=== PATIENT | male | born 1990 | race Hispanic/Latino ===

== ENCOUNTER 2017-04-08 16:24 | Observation (INO) | payer MEDICAID, OTHER ==
[2017-04-08 16:24] VITALS: BMI 25.0
--- NOTE | 2017-04-08 18:38 | CT ---
PROCEDURE: CT HEAD WITHOUT CONTRAST. HISTORY: Intoxicated head injury COMPARISON: 03/15/2016. TECHNIQUE: Axial computed tomography images were obtained through the head/brain without intravenous contrast. Radiation dose: Total exam DLP = 831.56 mGy-cm. This CT exam was performed using one or more of the following dose reduction techniques: Automated exposure control, adjustment of the mA and/or kV according to patient size, and/or use of iterative reconstruction technique. FINDINGS: HEMORRHAGE: No intracranial hemorrhage. BRAIN: No mass effect or edema. No atrophy or chronic microvascular ischemic changes. VENTRICLES: Unremarkable. No hydrocephalus. CALVARIUM: Unremarkable. PARANASAL SINUSES: Unremarkable as visualized. No significant inflammatory changes. MASTOID AIR CELLS: Unremarkable as visualized. No inflammatory changes. OTHER FINDINGS: None. IMPRESSION: No acute intracranial abnormalities. No significant findings to account for the clinical presentation. No significant interval change compared to the prior examination(s).
--- NOTE | 2017-04-08 18:44 | CT ---
CT cervical spine without IV contrast Indication: Intoxicated. Head injury. Comparison: None available. Technique: Axial computed tomography images were obtained of the cervical spine without the use of intravenous contrast. Coronal and sagittal reformatted images were created and reviewed. This CT exam was performed using 1 or more of the falling dose reduction techniques: Automated exposure control, adjustment of the MAA and/or kV according to patient size, and/or use of iterative reconstruction technique. Radiation dose: Total exam DLP = 537.79 mGy-cm. Findings: Straightening of the normal cervical lordosis may be related to muscle spasm or positioning. There is no evidence of acute fracture or subluxation. Posterior osteophyte arising from the right posterior superior aspect of the C7 vertebral body. No acute fracture identified. The prevertebral soft tissues and spinolaminar lines appear intact. The lateral masses are preserved. The dens tip is intact. There is proper alignment of the lateral masses of C1 with the C2 vertebral body. Fhdi-teqzniv-vtws-right mucosal polyps or retention cysts within the maxillary sinuses. Mild mucosal thickening of the ethmoid air cells. Included portions of the thyroid gland appear unremarkable. Included portions of lung apices appear clear. Impression: No evidence of acute fracture or subluxation. Straightening of the normal cervical lordosis may be related to muscle spasm or positioning. Posterior osteophyte arising from the right posterior superior aspect of the C7 vertebral body, degenerative change. Bvue-rcstbyh-cfoa-right mucosal polyps or retention cysts within the maxillary sinuses. Mild mucosal thickening of the ethmoid air cells.
--- NOTE | 2017-04-08 19:26 | C.PDOC ---
History Of Present Illness Pt was BIBEMS due to public alcohol intoxication. Pt also has signs of head trauma. Pt does not recall when it occurred. Time Seen by Provider: 04/08/17 17:31 Chief Complaint (Nursing): Substance Abuse History Per: Patient, EMS History/Exam Limitations: intoxication Onset/Duration Of Symptoms: Unknown (today) Current Symptoms Are (Timing): Still Present Suicide/Self Injury Attempted (Context): None Modifying Factor(s): Alcohol Severity: Severe Associated Symptoms: denies: Suicidal Thoughts, Suicidal Plan Additional History Per: Prior Records Past Medical History Reviewed: Historical Data, Nursing Documentation, Vital Signs Vital Signs: Last Vital Signs Temp 98.4 F 04/08/17 16:57 Pulse 113 H 04/08/17 16:57 Resp 18 04/08/17 16:57 BP 126/78 04/08/17 16:57 Pulse Ox 98 04/08/17 19:31 - Medical History PMH: Depression Other PMH: Alcohol abuse - [facility] Procedures INJECT/INFUSE NEC (08/13/14) Family History: States: Unknown Family Hx - Social History Hx Tobacco Use: No Hx Alcohol Use: Yes Hx Substance Use: No (pt denies) - Immunization History Hx Tetanus Toxoid Vaccination: No Hx Influenza Vaccination: No Hx Pneumococcal Vaccination: No Review Of Systems Review Of Systems: ROS cannot be obtained secondary to pt's inabilty to answer questions. Physical Exam - Physical Exam Appears: Non-toxic, No Acute Distress, Other (AOB, intoxicated) Skin: Warm, Dry Head: Abrasion (abrasions on scalp, no active bleeding) Eye(s): bilateral: PERRL, EOMI Neck: Normal ROM, No Midline Cervical Tenderness, No Step Off Deformity, Supple Chest: Symmetrical, No Deformity, No Tenderness, No Ecchymosis, No Subcutaneous Emphysema Cardiovascular: Rhythm Regular Respiratory: Normal Breath Sounds Gastrointestinal/Abdominal: Soft, No Tenderness Back: No CVA Tenderness, No Vertebral Tenderness Extremity: Normal ROM, No Tenderness, No Swelling, Other (old bony deformity of right shoulder) Neurological/Psych: Normal Motor, Normal Sensation, Slow To Respond With Command Gait: Unable To Assess ED Course And Treatment O2 Sat by Pulse Oximetry: 98 Pulse Ox Interpretation: Normal - CT Scan/US CT head Other Rad Studies (CT/US): Read By Radiologist, Radiology Report Reviewed CT/US Interpretation: IMPRESSION: No acute intracranial abnormalities. No significant findings to account for the clinical presentation. No significant interval change compared to the prior examination(s). CT C-spine Other Rad Studies (CT/US): Read By Radiologist, Radiology Report Reviewed CT/US Interpretation: Impression: No evidence of acute fracture or subluxation. Straightening of the normal cervical lordosis may be related to muscle spasm or positioning. Posterior osteophyte arising from the right posterior superior aspect of the C7 vertebral body, degenerative change. Left- nzbinmm-nfgw-rjlns mucosal polyps or retention cysts within the maxillary sinuses. Mild mucosal thickening of the ethmoid air cells. ED OBSERVATION Date of observation admission: 04/08/17 Time of observation admission: 18:00 - Observation admission statement Patient is being placed in observation because:: Alcohol intoxication. - Goals of Observation Goals of observation are:: Sobriety. Disposition - Disposition Disposition Time: 01:00 Condition: STABLE - Clinical Impression Clinical Impression: Alcohol abuse with intoxication, Head injury Physician Patient Turnover Patient Signed Over To: Reena Santillan Handoff Comments: to reassess and dispo pt once sober.
[2017-04-09 04:05] VITALS: RESP 16
[2017-04-09 06:04] VITALS: BP 111/64; PULSE 82; TEMP 98.2; O2SAT 97
== END 2017-04-09 06:52 | disposition home or self-care (01) ==
LOC: C.ER 16:24 → C.9OBSV 19:28
PROVIDERS: ADMIT Emergency Medicine; ATTEND Emergency Medicine
DX: F10.129 Alcohol abuse with intoxication, unspecified (principal); S09.90XA Unspecified injury of head, initial encounter; Y90.9 Presence of alcohol in blood, level not specified; X58.XXXA Exposure to other specified factors, initial encounter
CPT/HCPCS: 70450; 72125; 82948; G0378

== ENCOUNTER 2017-04-10 21:31 | Observation (INO) | payer OTHER ==
[2017-04-10 21:31] VITALS: BMI 25.0
[2017-04-10 21:43] VITALS: RESP 20
--- NOTE | 2017-04-10 22:00 | C.PDOC ---
History Of Present Illness Patient was brought in by EMS [place] the park. Patient admits to ETOH use and denies any physical complaints at this time. Time Seen by Provider: 04/10/17 21:58 Chief Complaint (Nursing): Substance Abuse History Per: Patient History/Exam Limitations: no limitations Onset/Duration Of Symptoms: Hrs Current Symptoms Are (Timing): Still Present Suicide/Self Injury Attempted (Context): None Modifying Factor(s): Alcohol Severity: None Pain Scale Rating Of: 0 Associated Symptoms: denies: Depression, Suicidal Thoughts, Suicidal Plan Involuntary Hold By: None Recent travel outside of the [place]: No Past Medical History Reviewed: Historical Data, Nursing Documentation, Vital Signs Vital Signs: Last Vital Signs Temp 97.9 F 04/10/17 21:41 Pulse 86 04/10/17 21:41 Resp 20 04/10/17 21:41 BP 118/68 04/10/17 21:41 Pulse Ox 97 04/11/17 01:46 - Medical History PMH: Depression Surgical History: No Surg Hx - [facility] Procedures INJECT/INFUSE NEC (08/13/14) Family History: States: No Known Family Hx - Social History Hx Tobacco Use: No Hx Alcohol Use: Yes Hx Substance Use: No (pt denies) - Immunization History Hx Tetanus Toxoid Vaccination: No Hx Influenza Vaccination: No Hx Pneumococcal Vaccination: No Review Of Systems Constitutional: Negative for: Fever, Chills Gastrointestinal: Negative for: Nausea, Vomiting, Diarrhea Physical Exam - Physical Exam Appears: Non-toxic, Other (ETOH on breath) Skin: Warm, Dry Oral Mucosa: Moist Chest: Symmetrical, No Tenderness Cardiovascular: Rhythm Regular, No Murmur Respiratory: No Rales, No Rhonchi, No Wheezing Gastrointestinal/Abdominal: Soft, No Tenderness Neurological/Psych: Oriented x3 ED Course And Treatment O2 Sat by Pulse Oximetry: 97 (Room air) Pulse Ox Interpretation: Normal Reevaluation Time: 05:37 Reassessment Condition: Improved ED OBSERVATION Discharge: Yes Date of observation admission: 04/10/17 Time of observation admission: 22:00 - Observation admission statement Patient is being placed in observation because:: Acute ETOH intoxication - Goals of Observation Goals of observation are:: Sobriety - Progress Note Progress Note: 04/11/17 01:46 vitals stable Disposition Counseled Patient/Family Regarding: Studies Performed, Diagnosis, Need For Followup - Disposition Disposition: HOME/ ROUTINE Disposition Time: 21:58 Condition: FAIR - Clinical Impression Clinical Impression: Alcohol intoxication, Alcohol abuse - Scribe Statement The provider has reviewed the documentation as recorded by the Scribeugenio Reyes All medical record entries made by the Pbibeugenio were at my direction and personally dictated by me. I have reviewed the chart and agree that the record accurately reflects my personal performance of the history, physical exam, medical decision making, and the department course for this patient. I have also personally directed, reviewed, and agree with the discharge instructions and disposition.
[2017-04-11 05:51] VITALS: BP 121/64; PULSE 77; TEMP 98.1; O2SAT 98
== END 2017-04-11 05:37 | disposition home or self-care (01) ==
LOC: C.ER 21:31 → C.9OBSV 22:00
PROVIDERS: ADMIT Emergency Medicine; ATTEND Emergency Medicine
DX: F10.129 Alcohol abuse with intoxication, unspecified (principal); Y90.9 Presence of alcohol in blood, level not specified
CPT/HCPCS: 82948; 99284; G0378

== ENCOUNTER 2017-05-19 20:05 | Emergency (ER) | payer OTHER ==
[2017-05-19 20:05] VITALS: BMI 23.7
--- NOTE | 2017-05-19 20:52 | C.PDOC ---
History Of Present Illness 27 year old male who presents to the ER with acute ETOH intoxication. Patient has no sign of injury; denies any physical complaints at this time. Chief Complaint (Nursing): Substance Abuse History Per: Patient History/Exam Limitations: no limitations Onset/Duration Of Symptoms: Hrs Current Symptoms Are (Timing): Still Present Suicide/Self Injury Attempted (Context): None Modifying Factor(s): Alcohol Associated Symptoms: denies: Depression, Suicidal Thoughts, Suicidal Plan Involuntary Hold By: None Recent travel outside of the [place]: No Past Medical History Reviewed: Historical Data, Nursing Documentation, Vital Signs Vital Signs: Last Vital Signs Temp 97.6 F 05/20/17 02:36 Pulse 82 05/20/17 02:36 Resp 18 05/20/17 02:36 BP 93/45 L 05/20/17 02:36 Pulse Ox 98 05/20/17 02:41 - Medical History PMH: Anxiety, Back Problems, Depression, Fractures, Gastritis Surgical History: No Surg Hx - [facility] Procedures INJECT/INFUSE NEC (08/13/14) Family History: States: Unknown Family Hx - Social History Hx Tobacco Use: No Hx Alcohol Use: Yes Hx Substance Use: No (pt denies) - Immunization History Hx Tetanus Toxoid Vaccination: No Hx Influenza Vaccination: No Hx Pneumococcal Vaccination: No Review Of Systems Constitutional: Negative for: Fever, Chills Gastrointestinal: Negative for: Nausea, Vomiting, Diarrhea Physical Exam - Physical Exam Appears: Non-toxic, No Acute Distress, Other (ETOH on breath, Slurred speech) Skin: Normal Color, Warm, Dry Head: Atraumatic, Normacephalic Oral Mucosa: Moist Chest: Symmetrical, No Tenderness Cardiovascular: Rhythm Regular, No Murmur Respiratory: Normal Breath Sounds, No Rales, No Rhonchi, No Wheezing Gastrointestinal/Abdominal: Soft, No Tenderness Neurological/Psych: Oriented x3, Normal Speech, Normal Cognition ED Course And Treatment - Laboratory Results Result Diagrams: 05/19/17 21:07 05/19/17 21:07 O2 Sat by Pulse Oximetry: 98 (Room air) Pulse Ox Interpretation: Normal Progress Note: Blood work and urinalysis ordered. ED OBSERVATION Date of observation admission: 05/19/17 Time of observation admission: 20:30 - Observation admission statement Patient is being placed in observation because:: Acute ETOH intoxication - Goals of Observation Goals of observation are:: Sobriety Disposition Counseled Patient/Family Regarding: Diagnosis - Disposition Referrals: [facility] [Outside] Disposition: HOME/ ROUTINE Disposition Time: 05:46 Condition: STABLE Instructions: Abuse of Alcohol (ED) - POA Present On Arrival: None - Clinical Impression Clinical Impression: Alcohol intoxication - Scribe Statement The provider has reviewed the documentation as recorded by the Scribe Jonathan Reyes All medical record entries made by the Scribe were at my direction and personally dictated by me. I have reviewed the chart and agree that the record accurately reflects my personal performance of the history, physical exam, medical decision making, and the department course for this patient. I have also personally directed, reviewed, and agree with the discharge instructions and disposition.
[2017-05-19] MEDS ORDERED: Sodium Chloride 0.9% 1,000 ML ONE (21:10)
[2017-05-19 21:19] LABS: BASO % 0.4 % (0.0-2.0); EOS # 0.1 K/uL (0.0-0.7); EOS % 1.9 % (0.0-4.0); HEMOGLOBIN 14.1 g/dL (12.0-18.0); LYMPH % 25.3 % (20.0-40.0); MEAN CELL VOLUME 89.4 fL (80.0-94.0); MEAN CORPUSCULAR HEMOGLOBIN 30.2 pg (27.0-31.0); MEAN CORPUSCULAR HGB CONC 33.8 g/dL (33.0-37.0); MEAN PLATELET VOLUME 6.6 fL (7.2-11.7); MONO # 0.5 K/uL (0.0-0.8); NEUT # 5.1 K/uL (1.8-7.0); NEUT % 66.4 % (50.0-75.0); NRBC % 0.1 % (0.0-2.0); RBC 4.66 Mil/uL (4.40-5.90); RED CELL DISTRIBUTION WIDTH 14.6 % (11.5-14.5); WHITE BLOOD COUNT 7.7 K/uL (4.8-10.8)
[2017-05-19 21:27] LABS: ALBUMIN 4.1 g/dL (3.5-5.0)
[2017-05-19 21:30] LABS: ALB/GLOB RATIO 1.2 (1.0-2.1); AST/SGOT 120 U/L (17-59); BLOOD UREA NITROGEN 11 mg/dL (9-20); GFR AFRICAN-AMERICAN > 60; GFR NON-AFRICAN AMERICAN > 60
[2017-05-19 21:31] LABS: ALT/SGPT 116 U/L (21-72); CALCIUM 9.1 mg/dl (8.6-10.4)
[2017-05-19] MEDS ORDERED: Sodium Chloride 0.9% 1,000 ML IV ONE (21:44)
[2017-05-19 22:16] LABS: URINE BILIRUBIN NEGATIVE (NEGATIVE); URINE BLOOD 1+ (NEGATIVE); URINE CLARITY Clear (Clear); URINE COLOR Straw (YELLOW); URINE GLUCOSE (UA) NORMAL (Normal); URINE LEUKOCYTE ESTERASE NEG Leu/uL (Negative); URINE NITRATE NEGATIVE (NEGATIVE); URINE PROTEIN NEGATIVE (NEGATIVE); URINE UROBILINOGEN NORMAL mg/dL (0.2-1.0)
[2017-05-19 22:29] LABS: BARBITURATES, UR NEGATIVE (NEGATIVE)
[2017-05-19 22:30] LABS: BENZODIAZEPINES, UR NEGATIVE (NEGATIVE)
[2017-05-19 22:32] LABS: OPIATES, UR NEGATIVE (NEGATIVE)
[2017-05-19 22:33] LABS: PHENCYCLIDINE, UR NEGATIVE (NEGATIVE)
[2017-05-20 02:41] VITALS: O2SAT 98
[2017-05-20 05:59] VITALS: BP 94/60; PULSE 78; RESP 20; TEMP 98
== END 2017-05-20 05:59 | disposition home or self-care (01) ==
LOC: C.ER 20:05
DX: F10.120 Alcohol abuse with intoxication, uncomplicated (principal); Y90.8 Blood alcohol level of 240 mg/100 ml or more
CPT/HCPCS: 80053; 80320; 80324; 80345; 80346; 80349; 80353; 80358; 80361; 81001; 83992; 85025; 96360; 99285; J7040

== ENCOUNTER 2017-05-28 17:04 | Observation (INO) | payer OTHER ==
[2017-05-28 17:09] VITALS: BMI 23.7
[2017-05-28] MEDS ORDERED: Sodium Chloride 0.9% 1,000 ML IV ONE (17:43)
--- NOTE | 2017-05-28 18:07 | C.PDOC ---
History Of Present Illness 27 year old male brought in by EMS for public intoxication, patient has had multiple visits at [facility] in the past for the same. Patient is poorly responsive and responds only to noxious stimuli. Patient is not answering questions or following commands. Time Seen by Provider: 05/28/17 17:29 Chief Complaint (Nursing): Substance Abuse History Per: EMS History/Exam Limitations: intoxication Onset/Duration Of Symptoms: Hrs Current Symptoms Are (Timing): Still Present Suicide/Self Injury Attempted (Context): None Modifying Factor(s): Alcohol Involuntary Hold By: None Recent travel outside of the [place]: No Past Medical History Reviewed: Historical Data, Nursing Documentation, Vital Signs Vital Signs: Last Vital Signs Temp 98.7 F 05/28/17 17:21 Pulse 104 H 05/28/17 17:21 Resp 18 05/28/17 17:21 BP 124/66 05/28/17 17:21 Pulse Ox 96 05/28/17 18:17 - Medical History PMH: Anxiety, Back Problems, Depression, Fractures, Gastritis Surgical History: No Surg Hx - [facility] Procedures INJECT/INFUSE NEC (08/13/14) Family History: States: Unknown Family Hx - Social History Hx Tobacco Use: No Hx Alcohol Use: Yes Hx Substance Use: No (pt denies) - Immunization History Hx Tetanus Toxoid Vaccination: No Hx Influenza Vaccination: No Hx Pneumococcal Vaccination: No Review Of Systems Review Of Systems: ROS cannot be obtained secondary to pt's inabilty to answer questions. Physical Exam - Physical Exam Appears: Non-toxic Skin: Normal Color, Warm, Dry Head: Atraumatic, Normacephalic Oral Mucosa: Moist Neck: Normal, Supple Chest: Symmetrical, No Tenderness Cardiovascular: Rhythm Regular, No Murmur Respiratory: Normal Breath Sounds, No Rales, No Rhonchi, No Wheezing Gastrointestinal/Abdominal: Soft, No Tenderness Extremity: No Tenderness, No Pedal Edema, No Deformity, No Swelling ED Course And Treatment O2 Sat by Pulse Oximetry: 96 (Room air) Pulse Ox Interpretation: Normal Progress Note: EKG, blood work, and urinalysis ordered. IV fluids administered. ED OBSERVATION Date of observation admission: 05/28/17 Time of observation admission: 18:06 - Observation admission statement Patient is being placed in observation because:: Acute ETOH intoxication - Goals of Observation Goals of observation are:: Sobriety Disposition - Disposition Disposition: HOSPITALIZED Disposition Time: 18:06 Condition: GUARDED Forms: [facility] (Vietnamese) - POA Present On Arrival: None - Clinical Impression Clinical Impression: Alcohol intoxication - Scribe Statement The provider has reviewed the documentation as recorded by the Scribe Jonathan Reyes All medical record entries made by the Scribe were at my direction and personally dictated by me. I have reviewed the chart and agree that the record accurately reflects my personal performance of the history, physical exam, medical decision making, and the department course for this patient. I have also personally directed, reviewed, and agree with the discharge instructions and disposition. Physician Patient Turnover Patient Signed Over To: Brian Thurston Handoff Comments: patient intoxicated, pending labs and re-eval
[2017-05-28 18:15] LABS: URINE BILIRUBIN NEGATIVE (NEGATIVE); URINE BLOOD 1+ (NEGATIVE); URINE COLOR Colorless (YELLOW); URINE GLUCOSE (UA) NORMAL (Normal); URINE KETONE NEGATIVE (NEGATIVE); URINE LEUKOCYTE ESTERASE NEG Leu/uL (Negative); URINE PROTEIN NEGATIVE (NEGATIVE); URINE UROBILINOGEN NORMAL mg/dL (0.2-1.0)
--- NOTE | 2017-05-28 18:20 | C.PDOC ---
Time Seen by Provider: 05/28/17 17:29 Chief Complaint (Nursing): Substance Abuse Past Medical History Vital Signs: Last Vital Signs Temp 98.7 F 05/28/17 17:21 Pulse 104 H 05/28/17 17:21 Resp 18 05/28/17 17:21 BP 124/66 05/28/17 17:21 Pulse Ox 96 05/28/17 17:21 - Medical History PMH: Anxiety, Back Problems, Depression, Fractures, Gastritis Denies: Arthritis, HIV, HTN, Chronic Kidney Disease, Seizures, Sexually Transmitted Disease - [facility] Procedures INJECT/INFUSE NEC (08/13/14) Family History: States: Unknown Family Hx - Social History Hx Tobacco Use: No Hx Alcohol Use: Yes Hx Substance Use: No (pt denies) - Immunization History Hx Tetanus Toxoid Vaccination: No Hx Influenza Vaccination: No Hx Pneumococcal Vaccination: No ED Course And Treatment O2 Sat by Pulse Oximetry: 96 Disposition - Disposition Forms: [employer] (Pashto)
[2017-05-28 18:29] LABS: RBC URINE 4 /hpf (0-3)
[2017-05-28 18:30] LABS: BASO % 0.8 % (0.0-2.0); EOS # 0.2 K/uL (0.0-0.7); EOS % 2.6 % (0.0-4.0); HEMATOCRIT 39.2 % (35.0-51.0); LYMPH # 2.5 K/uL (1.0-4.3); LYMPH % 40.7 % (20.0-40.0); MEAN CELL VOLUME 90.6 fL (80.0-94.0); MEAN CORPUSCULAR HEMOGLOBIN 31.4 pg (27.0-31.0); MEAN CORPUSCULAR HGB CONC 34.6 g/dL (33.0-37.0); MEAN PLATELET VOLUME 6.5 fL (7.2-11.7); MONO # 0.5 K/uL (0.0-0.8); MONO % 7.7 % (0.0-10.0); RED CELL DISTRIBUTION WIDTH 14.6 % (11.5-14.5); WHITE BLOOD COUNT 6.1 K/uL (4.8-10.8)
[2017-05-28 18:43] LABS: CHLORIDE 103 mmol/L (98-107)
[2017-05-28 18:44] LABS: POTASSIUM 3.7 mmol/L (3.6-5.2); SODIUM 145 mmol/L (132-148)
[2017-05-28 18:46] LABS: ALB/GLOB RATIO 1.3 (1.0-2.1); ALKALINE PHOSPHATASE 125 U/L (38-126); AST/SGOT 101 U/L (17-59); BILIRUBIN,TOTAL 0.5 mg/dL (0.2-1.3); CARBON DIOXIDE 25 mmol/L (22-30); GFR AFRICAN-AMERICAN > 60
[2017-05-28 18:47] LABS: ALT/SGPT 147 U/L (21-72); BLOOD UREA NITROGEN 10 mg/dL (9-20); GLUCOSE,RANDOM 100 mg/dL (75-110)
[2017-05-28 18:58] LABS: ALCOHOL SERUM 331 mg/dl (0-10)
[2017-05-29 03:55] VITALS: RESP 16
[2017-05-29 05:49] VITALS: BP 100/65; PULSE 76; TEMP 98.2; O2SAT 97
--- NOTE | 2017-05-30 07:54 | CARD ---
APPROVED REPORT EKG Measurement Heart [id number] <Conclusion> Normal sinus rhythm Normal ECG
== END 2017-05-29 05:35 | disposition home or self-care (01) ==
LOC: C.ER 17:04 → C.9OBSV 18:25
PROVIDERS: ADMIT Emergency Medicine; ATTEND Emergency Medicine
DX: F10.120 Alcohol abuse with intoxication, uncomplicated (principal); Y90.8 Blood alcohol level of 240 mg/100 ml or more
CPT/HCPCS: 80053; 80320; 80324; 80329; 80345; 80346; 80349; 80353; 80358; 80361; 81001; 82948; 83992; 85025; 96360; G0378; J7040

== ENCOUNTER 2017-06-01 23:55 | Emergency (ER) | payer OTHER ==
[2017-06-01 23:56] VITALS: BMI 23.7
--- NOTE | 2017-06-01 23:59 | C.PDOC ---
History Of Present Illness Patient was brought to the ER via EMS after he was found on the sidewalk intoxicated. Patient became agitative, combative, and began urinating all over the ambulance and room. Patient was retrained for his own safety and safety of ER workers. Patient has not verbalized any physical complaints at this time. Time Seen by Provider: 06/01/17 23:58 History Per: Patient History/Exam Limitations: no limitations Onset/Duration Of Symptoms: Hrs Current Symptoms Are (Timing): Still Present Suicide/Self Injury Attempted (Context): None Modifying Factor(s): Alcohol Severity: None Pain Scale Rating Of: 0 Associated Symptoms: denies: Depression, Suicidal Thoughts, Suicidal Plan Involuntary Hold By: None Recent travel outside of the [place]: No Past Medical History Reviewed: Historical Data, Nursing Documentation, Vital Signs Vital Signs: Last Vital Signs Temp 98.8 F 06/02/17 04:27 Pulse 83 06/02/17 04:27 Resp 20 06/02/17 04:27 BP 107/61 06/02/17 04:27 Pulse Ox 98 06/02/17 04:27 - Medical History PMH: Anxiety, Back Problems, Depression, Fractures, Gastritis Surgical History: No Surg Hx - [facility] Procedures INJECT/INFUSE NEC (08/13/14) Family History: States: No Known Family Hx - Social History Hx Tobacco Use: No Hx Alcohol Use: Yes Hx Substance Use: No (pt denies) - Immunization History Hx Tetanus Toxoid Vaccination: No Hx Influenza Vaccination: No Hx Pneumococcal Vaccination: No Review Of Systems Constitutional: Negative for: Fever, Chills Gastrointestinal: Negative for: Nausea, Vomiting, Diarrhea Physical Exam - Physical Exam Appears: Non-toxic, Combative, Agitated, Other (ETOH on breath) Skin: Warm, Dry Oral Mucosa: Moist Chest: Symmetrical, No Tenderness Cardiovascular: Rhythm Regular, No Murmur Respiratory: No Rales, No Rhonchi, No Wheezing Gastrointestinal/Abdominal: Soft, No Tenderness Neurological/Psych: Oriented x3 ED Course And Treatment - Laboratory Results Result Diagrams: 06/02/17 00:41 06/02/17 00:41 O2 Sat by Pulse Oximetry: 98 Pulse Ox Interpretation: Normal Progress Note: Blood work and urinalysis ordered. Patient place on 4 point restraints. ED OBSERVATION Date of observation admission: 06/02/17 Time of observation admission: 00:13 - Observation admission statement Patient is being placed in observation because:: acute alcohol intoxication - Goals of Observation Goals of observation are:: sobriety - Progress Note Progress Note: 06/02/17 00:14 vitals stable 06/02/17 04:24 no complaints Disposition Counseled Patient/Family Regarding: Studies Performed, Diagnosis, Need For Followup - Disposition Referrals: [facility] [Outside] Disposition: HOME/ ROUTINE Disposition Time: 23:59 Condition: FAIR Instructions: Alcohol Intoxication (DC) - Clinical Impression Clinical Impression: Alcohol intoxication - Scribe Statement The provider has reviewed the documentation as recorded by the Scribe Jonathan Reyes All medical record entries made by the Scribe were at my direction and personally dictated by me. I have reviewed the chart and agree that the record accurately reflects my personal performance of the history, physical exam, medical decision making, and the department course for this patient. I have also personally directed, reviewed, and agree with the discharge instructions and disposition.
[2017-06-02 00:44] LABS: BASO # 0.1 K/uL (0.0-0.2); EOS # 0.2 K/uL (0.0-0.7); HEMATOCRIT 40.6 % (35.0-51.0); LYMPH # 1.8 K/uL (1.0-4.3); LYMPH % 22.2 % (20.0-40.0); MEAN CELL VOLUME 91.4 fL (80.0-94.0); MEAN CORPUSCULAR HEMOGLOBIN 31.4 pg (27.0-31.0); MEAN CORPUSCULAR HGB CONC 34.3 g/dL (33.0-37.0); MEAN PLATELET VOLUME 6.5 fL (7.2-11.7); MONO # 0.7 K/uL (0.0-0.8); MONO % 8.4 % (0.0-10.0); NRBC % 0.1 % (0.0-2.0); RED CELL DISTRIBUTION WIDTH 14.8 % (11.5-14.5); WHITE BLOOD COUNT 8.1 K/uL (4.8-10.8)
[2017-06-02 01:09] LABS: RBC URINE < 1 /hpf (0-3); URINE BILIRUBIN NEGATIVE (NEGATIVE); URINE COLOR Straw (YELLOW); URINE GLUCOSE (UA) NORMAL (Normal); URINE KETONE NEGATIVE (NEGATIVE); URINE LEUKOCYTE ESTERASE NEG Leu/uL (Negative); URINE PROTEIN NEGATIVE (NEGATIVE); URINE UROBILINOGEN NORMAL mg/dL (0.2-1.0)
[2017-06-02 01:13] LABS: CHLORIDE 103 mmol/L (98-107)
[2017-06-02 01:14] LABS: POTASSIUM 3.8 mmol/L (3.6-5.2); SODIUM 143 mmol/L (132-148)
[2017-06-02 01:16] LABS: ALB/GLOB RATIO 1.2 (1.0-2.1); ALKALINE PHOSPHATASE 114 U/L (38-126); ALT/SGPT 124 U/L (21-72); AST/SGOT 104 U/L (17-59); BILIRUBIN,TOTAL 0.5 mg/dL (0.2-1.3); BLOOD UREA NITROGEN 13 mg/dL (9-20); CALCIUM 9.7 mg/dl (8.6-10.4); CARBON DIOXIDE 23 mmol/L (22-30); GFR AFRICAN-AMERICAN > 60; GLUCOSE,RANDOM 90 mg/dL (75-110); TOTAL PROTEIN 7.5 g/dL (6.3-8.3)
[2017-06-02 01:17] LABS: ALCOHOL SERUM 268 mg/dl (0-10)
[2017-06-02 01:27] LABS: URINE BLOOD NEGATIVE (NEGATIVE)
[2017-06-02 04:27] VITALS: TEMP 98.8
[2017-06-02 06:15] VITALS: BP 110/72; PULSE 75; RESP 17; O2SAT 99
== END 2017-06-02 06:17 | disposition home or self-care (01) ==
LOC: C.ER 23:55
DX: F10.129 Alcohol abuse with intoxication, unspecified (principal); Y90.8 Blood alcohol level of 240 mg/100 ml or more

== ENCOUNTER 2017-06-21 17:01 | Observation (INO) | payer OTHER ==
[2017-06-21 17:04] VITALS: BMI 25.8
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
[2017-06-21] MEDS ORDERED: Benzoin Compound Tincture (60 ml) ONE (17:30)
[2017-06-21 23:57] VITALS: O2SAT 98
[2017-06-22 06:14] VITALS: BP 109/72; PULSE 71; RESP 16; TEMP 97.8
== END 2017-06-22 06:12 | disposition home or self-care (01) ==
LOC: C.ER 17:01 → C.9OBSV 17:27 → MERGE 17:27
PROVIDERS: ADMIT Emergency Medicine; ATTEND Emergency Medicine
DX: F10.129 Alcohol abuse with intoxication, unspecified (principal); Y90.8 Blood alcohol level of 240 mg/100 ml or more; R45.1 Restlessness and agitation
CPT/HCPCS: 36415; 80320; 82948; 96372; 99283; G0378; J3486

== ENCOUNTER 2018-05-26 11:39 | Emergency (ER) | payer MEDICAID ==
[2018-05-26 11:40] VITALS: BMI 23.6
[2018-05-26] MEDS ORDERED: Sodium Chloride 0.9% 1,000 ML IV ONE (11:57)
[2018-05-26] MEDS ORDERED: Sodium Chloride 0.9% 1,000 ML ONE (12:14)
[2018-05-26 12:21] LABS: BASO % 0.5 % (0.0-2.0); EOS # 0.1 K/uL (0.0-0.7); EOS % 1.5 % (0.0-4.0); HEMOGLOBIN 14.8 g/dL (12.0-18.0); LYMPH # 1.7 K/uL (1.0-4.3); LYMPH % 27.3 % (20.0-40.0); MEAN CELL VOLUME 91.4 fL (80.0-94.0); MEAN CORPUSCULAR HEMOGLOBIN 31.7 pg (27.0-31.0); MEAN CORPUSCULAR HGB CONC 34.6 g/dL (33.0-37.0); MEAN PLATELET VOLUME 7.1 fL (7.2-11.7); MONO # 0.6 K/uL (0.0-0.8); MONO % 9.8 % (0.0-10.0); NEUT # 3.8 K/uL (1.8-7.0); NEUT % 60.9 % (50.0-75.0); NRBC % 0.1 % (0.0-2.0); RBC 4.67 Mil/uL (4.40-5.90); RED CELL DISTRIBUTION WIDTH 12.9 % (11.5-14.5); WHITE BLOOD COUNT 6.3 K/uL (4.8-10.8)
[2018-05-26 12:37] LABS: ALB/GLOB RATIO 1.6 (1.0-2.1); ALBUMIN 4.6 g/dL (3.5-5.0); ALT/SGPT 33 U/L (21-72); AST/SGOT 40 U/L (17-59); BLOOD UREA NITROGEN 10 mg/dL (9-20); CALCIUM 9.5 mg/dl (8.6-10.4); GFR AFRICAN-AMERICAN > 60; GFR NON-AFRICAN AMERICAN > 60
[2018-05-26 12:55] LABS: URINE BILIRUBIN NEGATIVE (NEGATIVE); URINE BLOOD 1+ (NEGATIVE); URINE CLARITY Clear (Clear); URINE COLOR Straw (YELLOW); URINE GLUCOSE (UA) NORMAL (Normal); URINE LEUKOCYTE ESTERASE NEG Leu/uL (Negative); URINE PROTEIN NEGATIVE (NEGATIVE); URINE UROBILINOGEN NORMAL mg/dL (0.2-1.0)
[2018-05-26 13:04] LABS: BARBITURATES, UR NEGATIVE (NEGATIVE); BENZODIAZEPINES, UR NEGATIVE (NEGATIVE); OPIATES, UR NEGATIVE (NEGATIVE); PHENCYCLIDINE, UR NEGATIVE (NEGATIVE)
--- NOTE | 2018-05-26 13:29 | C.PDOC ---
History Of Present Illness 28-year-old male, is brought to the emergency department by ambulance with complaints of intoxication. EMS was called by friends, stating pt drank too much. All other hx is [id number] due to intoxication Time Seen by Provider: 05/26/18 11:46 Chief Complaint (Nursing): Substance Abuse Past Medical History Reviewed: Historical Data, Nursing Documentation, Vital Signs Vital Signs: Last Vital Signs Temp 98.1 F 05/26/18 16:26 Pulse 79 05/26/18 16:26 Resp 14 05/26/18 16:26 BP 101/65 05/26/18 16:26 Pulse Ox 96 05/26/18 18:42 - Medical History PMH: Anxiety, Back Problems, Depression, Fractures, Gastritis - [facility] Procedures INJECT/INFUSE NEC (08/13/14) Family History: States: Unknown Family Hx - Social History Hx Tobacco Use: No Hx Alcohol Use: Yes Hx Substance Use: No (pt denies) - Immunization History Hx Tetanus Toxoid Vaccination: No Review Of Systems Review Of Systems: ROS cannot be obtained secondary to pt's inabilty to answer questions. Physical Exam - Physical Exam Appears: Non-toxic, No Acute Distress, Other (arousable by sternal rub, EtOH on breath) Skin: Normal Color, Warm, Dry, No Rash Head: Atraumatic, Normacephalic Eye(s): bilateral: Normal Inspection, PERRL (3mm), EOMI Nose: Normal Chest: Symmetrical Cardiovascular: Rhythm Regular, No Murmur Respiratory: Normal Breath Sounds, No Accessory Muscle Use Gastrointestinal/Abdominal: Soft, No Tenderness, No Guarding, No Rebound Extremity: Normal ROM, No Deformity, No Swelling Neurological/Psych: Oriented x3, Normal Speech ED Course And Treatment - Laboratory Results Result Diagrams: 05/26/18 12:12 05/26/18 12:12 O2 Sat by Pulse Oximetry: 96 (RA) Pulse Ox Interpretation: Normal Progress Note: Blood work, UA, UDS ordered and reviewed. Patient given IV NS bolus. 3:15pm- Patient arousable to verbval stimuli, resting comfortably. Pending sobriety. Currently getting IV banana bag. 6:30pm- Patient awake & alert. Disposition - Disposition Disposition Time: 19:00 Condition: STABLE Forms: [facility] (Georgian) - Clinical Impression Clinical Impression: Alcohol intoxication - Scribe Statement The provider has reviewed the documentation as recorded by the Scribe (Melinda Flanagan) All medical record entries made by the Scribe were at my direction and personally dictated by me. I have reviewed the chart and agree that the record accurately reflects my personal performance of the history, physical exam, medical decision making, and the department course for this patient. I have also personally directed, reviewed, and agree with the discharge instructions and disposition. Physician Patient Turnover Patient Signed Over To: Yovanny Torre Handoff Comments: PENDING SOBRIETY
[2018-05-26] MEDS ORDERED: Multivitamin (MVI) 10 ML, Thiamine 100 MG, Folic Acid 1 MG in Sodium Chloride 0.9% 1,00... IV ONE (14:57)
[2018-05-26 19:17] VITALS: BP 107/63; PULSE 74; RESP 18; TEMP 98.2; O2SAT 98
== END 2018-05-26 19:33 | disposition home or self-care (01) ==
LOC: C.ER 11:39
DX: F10.129 Alcohol abuse with intoxication, unspecified (principal); Y90.8 Blood alcohol level of 240 mg/100 ml or more
CPT/HCPCS: 80053; 80320; 80324; 80345; 80346; 80349; 80353; 80358; 80361; 81001; 82948; 83992; 85025; 96361; 96365; 96366; 99285; J3411; J7030

== ENCOUNTER 2018-06-06 00:07 | Emergency (ER) | payer MEDICAID ==
[2018-06-06 00:07] VITALS: BMI 23.6
[2018-06-06 03:45] VITALS: RESP 18; TEMP 98
--- NOTE | 2018-06-06 05:07 | C.PDOC ---
History Of Present Illness 28 year old male presents the ER via EMS for public intoxication. Patient has had many prior evaluations for the same. Denies complaints at this time. Time Seen by Provider: 06/06/18 00:21 Chief Complaint (Nursing): Substance Abuse History Per: Patient History/Exam Limitations: no limitations Onset/Duration Of Symptoms: Hrs Current Symptoms Are (Timing): Still Present Suicide/Self Injury Attempted (Context): None Modifying Factor(s): Alcohol Associated Symptoms: denies: Depression, Suicidal Thoughts Involuntary Hold By: None Recent travel outside of the [place]: No Past Medical History Reviewed: Historical Data, Nursing Documentation, Vital Signs Vital Signs: Last Vital Signs Temp 98.0 F 06/06/18 03:44 Pulse 93 H 06/06/18 03:44 Resp 18 06/06/18 03:44 BP 112/71 06/06/18 03:44 Pulse Ox 94 L 06/06/18 05:07 - Medical History PMH: Anxiety, Back Problems, Depression, Fractures, Gastritis Denies: Chronic Kidney Disease - [facility] Procedures INJECT/INFUSE NEC (08/13/14) Family History: States: Unknown Family Hx - Social History Hx Tobacco Use: No Hx Alcohol Use: Yes Hx Substance Use: No (pt denies) - Immunization History Hx Tetanus Toxoid Vaccination: No Review Of Systems Constitutional: Negative for: Fever, Chills Cardiovascular: Negative for: Chest Pain, Palpitations Respiratory: Negative for: Cough, Shortness of Breath Gastrointestinal: Negative for: Nausea, Vomiting Physical Exam - Physical Exam Appears: Non-toxic, Other (No injuries, ETOH on breath, stuperous) Skin: Normal Color, Warm, Dry Head: Atraumatic, Normacephalic Eye(s): bilateral: Normal Inspection, PERRL, EOMI Oral Mucosa: Moist Neck: Normal, Supple Chest: Symmetrical, No Tenderness Cardiovascular: Rhythm Regular Respiratory: Normal Breath Sounds, No Rales, No Rhonchi, No Wheezing Gastrointestinal/Abdominal: Soft, No Tenderness Extremity: Normal ROM (x4) Neurological/Psych: Oriented x3, Normal Speech Gait: Steady ED Course And Treatment O2 Sat by Pulse Oximetry: 94 (Room air) Pulse Ox Interpretation: Normal Reevaluation Time: 05:06 (easily arousable, clinically sober) Medical Decision Making Medical Decision Making: persistent alcohol abuse Disposition Doctor Will See Patient In The: Office Counseled Patient/Family Regarding: Studies Performed, Diagnosis - Disposition Referrals: Alcoholics Anonymous [Outside] [facility] [Outside] [facility] [Outside] [facility] [Outside] [facility] [Outside] Disposition: HOME/ ROUTINE Disposition Time: 05:06 Condition: GOOD Instructions: Alcohol Abuse and Alcoholism (DC) Forms: [facility] ([place]er) - Clinical Impression Clinical Impression: Alcohol abuse - Scribe Statement The provider has reviewed the documentation as recorded by the Scribe Jonathan Reyes All medical record entries made by the Scribe were at my direction and personally dictated by me. I have reviewed the chart and agree that the record accurately reflects my personal performance of the history, physical exam, medical decision making, and the department course for this patient. I have also personally directed, reviewed, and agree with the discharge instructions and disposition.
[2018-06-06 05:41] VITALS: BP 105/61; PULSE 86; O2SAT 96
== END 2018-06-06 05:42 | disposition home or self-care (01) ==
LOC: C.ER 00:07
DX: F10.10 Alcohol abuse, uncomplicated (principal); Y90.9 Presence of alcohol in blood, level not specified

== ENCOUNTER 2019-03-30 01:18 | Emergency (ER) | payer MEDICAID ==
[2019-03-30 01:18] VITALS: BMI 23.6
[2019-03-30 01:32] VITALS: TEMP 98.7
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
[2019-03-30 04:18] VITALS: BP 136/69; PULSE 81; RESP 17
[2019-03-30 05:16] VITALS: O2SAT 96
== END 2019-03-30 05:18 | disposition home or self-care (01) ==
LOC: C.ER 01:18
DX: F10.129 Alcohol abuse with intoxication, unspecified (principal); F32.9 Major depressive disorder, single episode, unspecified